=== PATIENT | male | born 1990 | race Caucasian/White ===

== ENCOUNTER 2024-11-01 10:53 | Emergency (ER) | payer BC ==
[2024-11-01] MEDS ORDERED: Boostrix 0.5 ML (Tdap) VIAL (>/=7 yrs of age) ONE (11:04)
[2024-11-01] MEDS ORDERED: Bacitracin 1 PK ONE (11:04)
[2024-11-01] MEDS ORDERED: Lidocaine 1% (PF) 30 ML VIAL ONE (11:04)
== END 2024-11-01 11:56 | disposition home or self-care (01) ==
LOC: NAV ERS 10:53
DX: S61.411A Laceration without foreign body of right hand, initial encounter (principal); F17.220 Nicotine dependence, chewing tobacco, uncomplicated; Z23 Encounter for immunization; W26.8XXA Contact with other sharp object(s), not elsewhere classified, initial encounter
CPT/HCPCS: 12002; 90471; 90715